=== PATIENT | female | born 1970 | race Caucasian/White ===

== ENCOUNTER 2017-02-11 06:02 | Day surgery (SDC) | payer OTHER ==
[~2017-02-11 06:02] MED LIST: Buffered Lidocaine 0.9% SYRIN* 5 ML/SYR SYRINGE INTRADERM ONE; Dexamethasone IV* 4 MG/ML 1 ML (4 MG) IV SLOW PU ONE; Famotidine IV* 10 MG/ML 2 ML (20 mg) IV ONE
[2017-02-11] MEDS ORDERED: Famotidine IV* 10 MG/ML 2 ML (20 mg) ONE (06:04)
[2017-02-11] MEDS ORDERED: Dexamethasone IV* 4 MG/ML 1 ML (4 MG) ONE (06:04)
[2017-02-11] MEDS ORDERED: ceFOXitin 2 GM IVPREMIX* 2 GM/50 ML BAG ONE (06:05)
[2017-02-11] MEDS ORDERED: Buffered Lidocaine 0.9% SYRIN* 5 ML/SYR SYRINGE ONE (06:05)
[2017-02-11] MEDS ORDERED: oxyCODONE/Acetamin 5/325 MG* TAB PO PRN (07:26)
[2017-02-11] MEDS ORDERED: fentaNYL* 50 MCG/ML 2 ML VIAL (100 MCG VIAL) IV PRN (07:26)
[2017-02-11] MEDS ORDERED: Ondansetron INJ* 2 MG/ML VIAL IV PRN (07:26)
[2017-02-11] MEDS ORDERED: DiMENhydriNATE IV* 50 MG/ML VIAL IV PUSH PRN (07:26)
[2017-02-11] MEDS ORDERED: Midazolam* 1 MG/ML 5 ML VIAL (5 MG) ONE (07:29)
[2017-02-11] MEDS ORDERED: Ondansetron INJ* 2 MG/ML VIAL ONE (07:30)
[2017-02-11] MEDS ORDERED: Propofol* 10 MG/ML 20 ML BTL IV PUSH ONE (07:30)
[2017-02-11] MEDS ORDERED: Ketorolac INJ* 30 MG/ML 1 ML VIAL ONE (07:30)
[2017-02-11] MEDS ORDERED: Chloroprocaine 2%* 20 ML VIAL ONE (07:30)
[2017-02-11] MEDS ORDERED: Lidocaine 2% PF * 5 ML VIAL ONE (07:41)
[2017-02-11 10:16] VITALS: BP 114/67
--- NOTE | 2017-02-11 16:26 | OP ---
DATE OF OPERATION: 02/11/17 - [facility] DATE OF : 66 SURGEON: Dr. Birmingham. ARCHITECT INTERNSHIP: None. ANESTHESIOLOGIST: Terrell Cuevas MD ANESTHESIA: Spinal. PRE-OP DIAGNOSES: Menorrhagia, excessive frequent menstruation with regular cycle. POST-OP DIAGNOSES: Menorrhagia, excessive frequent menstruation with regular cycle. OPERATIVE PROCEDURE: D and C, hysteroscopy, and endometrial ablation. ESTIMATED BLOOD LOSS: Minimal. SPECIMEN: Includes endometrium. FINDINGS: On exam under anesthesia, the uterus was mid position and there was a normal cavity. DESCRIPTION OF PROCEDURE: Patient identified, procedure identified as D and C, hysteroscopy, and endometrial ablation. The patient was taken to the operating room, prepped and draped in the usual fashion in dorsal lithotomy position under spinal anesthesia. Two single-tooth tenaculums were placed on the anterior lip of the cervix. The hysteroscope was inserted and the above findings were noted. The uterus was sounded to 8 cm. The endocervix was sounded to 3 cm, making the cavity length 5 cm. After the hysteroscopy, the sharp curette was inserted and sharp curettage performed until gritty sensation was felt throughout the circumference and the NovaSure device was opened. The array was checked. The device was placed in the uterine cavity. Opening width was 4.8 cm, power setting of 132. The CO2 perforation test was performed. The device passed. The device was enabled. NovaSure ablation took place for 90 seconds. At the end of the procedure, the NovaSure was removed and the hysteroscope was reinserted and a good ablation was noted. No perforations were noted. All instruments were removed from the vagina. All sponge and instrument counts were correct and the patient returned to the recovery room in stable condition. [id number]/CPS #: [id number] [facility]
== END 2017-02-11 10:17 | disposition home or self-care (01) ==
LOC: OR 06:02
PROVIDERS: ATTEND Obstetrics & Gynecology
DX: N92.0 Excessive and frequent menstruation with regular cycle (principal); J45.909 Unspecified asthma, uncomplicated; E03.9 Hypothyroidism, unspecified; M06.9 Rheumatoid arthritis, unspecified
CPT/HCPCS: 81025; 88305; J0694; J1100; J1885; J2250; J2400; J2405; J2704

== ENCOUNTER 2019-05-26 06:43 | Observation (INO) | payer OTHER ==
--- NOTE | 2019-05-15 14:08 | HP ---
CC: Dr. Martín Erwin; Dr. Joshi; Dr. Lora * PREOPERATIVE HISTORY AND PHYSICAL: DATE OF ADMISSION/SURGERY: 05/26/19 This patient is scheduled for same-day surgery with overnight extension on 05/26/19. DATE OF PREOPERATIVE HISTORY AND PHYSICAL EXAMINATION: 05/15/19. ATTENDING SURGEON: Dr. Lucinda Joiner * (dictated by Dee Oliveira NP). CHIEF COMPLAINT: Right breast cancer. HISTORY OF PRESENT ILLNESS: The patient is a 48-year-old female, recently evaluated by Dr. Joiner for a newly diagnosed right breast ductal carcinoma in situ. The patient had not noticed any breast changes, but underwent routine screening mammography in mid February. This showed suspicious right breast calcifications and she underwent a biopsy of 2 areas in a 4 to 5 cm region of microcalcification. One of the areas showed ductal carcinoma in situ and the other showed atypical ductal hyperplasia. She denied any breast changes and has no nipple discharge. She had a bilateral breast MRI that revealed a suspicious area in the right breast that was extensive and the left breast showed scattered punctate areas with questionable suspicious appearance. Dr. Joiner has reviewed the findings with the patient and discussed surgical options and the patient has opted for bilateral mastectomies with right sentinel lymph node biopsy by Dr. Joiner and then immediate reconstruction by Dr. Lora. Dr. Joiner described the nature of the portion of the surgical procedure that she would be doing, the relevant risks and benefits and alternatives. She has had a consultation with Dr. Lora to discuss the immediate reconstruction. Additional history includes a left breast biopsy in her 20s that was benign; a family history of breast cancer in a paternal aunt and a maternal great aunt and a maternal second cousin; there is no family history of ovarian cancer. The patient was on control pills for a few years 25 years ago; she was 12 with her first menstrual period and 24 with her first child and she did breastfeed. She underwent uterine ablation in 2016 and has not had a menstrual cycle since. PAST MEDICAL HISTORY: Significant for asthma, rheumatoid arthritis, hypothyroidism and migraine headaches. PAST SURGICAL HISTORY: Two right knee surgeries in 1986, bilateral trigger thumb release, right wrist surgery, diagnostic laparoscopy, uterine ablation. OB HISTORY: 3, para 3. She has not had a menstrual period since January 2017 after uterine ablation. MEDICATIONS: 1. Meloxicam 15 mg p.o. daily and she will hold that for 5 days preoperatively. 2. Hydroxychloroquine sulfate 200 mg 2 tablets daily. 3. Ferrous sulfate 325 mg p.o. daily. 4. Spiriva HandiHaler 18 mcg 1 unit inhalation daily. 5. Multivitamin p.o. daily. 6. Albuterol sulfate via nebulizer as needed. 7. Proventil inhaler 108 mcg per actuation 2 puffs every 6 hours p.r.n. 8. Vitamin C 1000 mg daily. 9. Levothyroxine 125 mcg daily. 10. She was previously on intravenous infusion of Rituxan, but that is on hold until after surgery. 11. Voltaren 1% apply 2 g to affected area up to 4 times daily. ALLERGIES: METHOTREXATE caused severe migraine headaches, CLARITHROMYCIN caused rash and BAND-AIDS caused skin tears. FAMILY HISTORY: Positive for breast cancer in a paternal aunt diagnosed around age 50, a maternal great aunt at an unnamed age and a maternal cousin diagnosed at age 35. There is no family history of ovarian cancer. No known anesthesia complications, bleeding tendencies, or clotting disorders. 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 REVIEW OF SYSTEMS: Constitutional: No fevers, chills, excessive fatigue or weight loss. General: No previous anesthesia complications. No history of deep vein thrombosis or pulmonary embolism. No bleeding tendencies or blood transfusions, but she states that she bruises easily. Endocrine: No diabetes. She has hypothyroidism and is on replacement. Breasts: As described in history of present illness. Respiratory: No dyspnea on exertion or chronic cough. Cardiovascular: No anginal chest pain or palpitations. Gastrointestinal : No nausea, vomiting, diarrhea, GI bleeding, constipation, or change in bowel habits. Genitourinary: No dysuria. Musculoskeletal: Rheumatoid arthritis with chronic associated pain. Integumentary: No chronic rashes or skin changes. Neurologic: No headache, blurred vision, or areas of focal numbness. Psychiatric: No reported anxiety, depression, or insomnia. PHYSICAL EXAMINATION GENERAL SURVEY: The patient is a 48-year-old female, well developed, well nourished, in no acute distress. VITAL SIGNS: Height 64 inches, weight 135 pounds, body mass index 23.2. Blood pressure 100/70, pulse 72 and regular, respiratory rate 16, temperature 97.7 tympanic. HEENT: Benign. NECK: Supple. No cervical lymphadenopathy. No supraclavicular lymphadenopathy. LUNGS: Breath sounds bilaterally clear and equal. BREASTS: Symmetrical. Palpation of the right breast reveals nodularity laterally, but no discrete masses. Palpation of the left breast reveals no discrete masses, no axillary adenopathy bilaterally, no nipple discharge. HEART: Regular rate and rhythm. No murmurs or rubs appreciated. ABDOMEN: Active bowel sounds, soft, nondistended, nontender throughout. PELVIC EXAM: Deferred. RECTAL EXAM: Deferred. EXTREMITIES: Warm without edema or skin ulceration. NEUROLOGIC: Alert and oriented x3. Steady gait. PSYCHIATRIC: Cooperative and calm. SKIN: Warm, dry, intact. IMPRESSION: Right breast ductal carcinoma in situ, extensive as noted on breast MRI. PLAN: Same-day surgery admission with overnight stay to Dr. Joiner's service for bilateral mastectomies with right sentinel lymph node biopsy by Dr. Joiner and then immediate reconstruction with Dr. Lora. TOM OLIVEIRA, RAMAKRISHNA [id number]/CPS #: [id number] [facility]
[2019-05-26] MEDS ORDERED: Heparin VIAL(*) 5000 UNITS/ML VIAL (FIVE THOUSAND) SUBCUT ONE (07:00)
[2019-05-26] MEDS ORDERED: Buffered Lidocaine 1% SYRIN* 1 ML/SYRINGE INTRADERM ONE (07:38)
[2019-05-26] MEDS ORDERED: Lidocaine 2.5%/Prilocain 2.5%* 5 GM TUBE ONE (07:38)
[2019-05-26] MEDS ORDERED: Acetaminophen TAB* 325 MG ONE (07:54)
[2019-05-26] MEDS ORDERED: Scopolamine 1.5 mg* PATCH ONE (09:30)
[2019-05-26] MEDS ORDERED: Heparin VIAL(*) 5000 UNITS/ML VIAL (FIVE THOUSAND) ONE (09:30)
[2019-05-26] MEDS ORDERED: Dexamethasone IV* 4 MG/ML 1 ML (4 MG) ONE (09:30)
[2019-05-26] MEDS ORDERED: Ondansetron INJ* 2 MG/ML VIAL ONE ×3 (09:30→18:14)
[2019-05-26] MEDS ORDERED: ceFAZolin 2 GM PREMIX in ORs 2 GM/50 ML BAG ONE ×2 (09:30→16:25)
[2019-05-26] MEDS ORDERED: Midazolam* 1 MG/ML 2 ML VIAL (2 MG) ONE (10:31)
[2019-05-26] MEDS ORDERED: Rocuronium* 10 MG/ML VIAL ONE (10:31)
[2019-05-26] MEDS ORDERED: Lidocaine 2% PF * 5 ML VIAL ONE (10:31)
[2019-05-26] MEDS ORDERED: Propofol* 10 MG/ML 20 ML BTL ONE ×3 (10:31→14:23)
[2019-05-26] MEDS ORDERED: fentaNYL* 50 MCG/ML 2 ML VIAL (100 MCG VIAL) ONE (10:32)
[2019-05-26] MEDS ORDERED: Gentamicin ADULT (*) 40 MG/ML VIAL (2 ML VIAL = 80 MG) ONE (11:56)
[2019-05-26] MEDS ORDERED: Methylene Blue 0.5 %* 50 MG/10 ML AMP IV ONE (11:57)
[2019-05-26] MEDS ORDERED: ceFAZolin VIAL(*) VIAL ONE (11:57)
[2019-05-26] MEDS ORDERED: Bacitracin INJECTION* 50,000 UNITS ONE (11:57)
[2019-05-26] MEDS ORDERED: Bupivacaine 0.25% SDV* 30 ML ONE (11:57)
[2019-05-26] MEDS ORDERED: Povidone Iodine 5% OPTH* 30 ML BTL ONE (12:12)
[2019-05-26] MEDS ORDERED: Propofol* 500 MG/50 ML BTL ONE (12:25)
[2019-05-26] MEDS ORDERED: KETAMINE HCL* 50 MG/ML 10 ML VIAL ONE (12:26)
[2019-05-26] MEDS ORDERED: Remifentanil* 2 MG VIAL ONE ×2 (12:28→15:54)
[2019-05-26] MEDS ORDERED: DiMENhydriNATE IV* 50 MG/ML VIAL IV PUSH PRN (13:06)
[2019-05-26] MEDS ORDERED: oxyCODONE TAB* 5 MG TAB PO PRN (13:06)
[2019-05-26] MEDS ORDERED: Naloxone* 0.4 MG/ML 1 ML VIAL IV PRN (13:06)
[2019-05-26] MEDS ORDERED: Phenylephrine 40 MCG/ML SYRINGE ONE (13:15)
[2019-05-26] MEDS ORDERED: Propofol* 100 ML ONE (14:45)
--- NOTE | 2019-05-26 15:17 | BRIEFOPN ---
Brief Operative/Procedure Note - Operation Details Pre-Op Diagnosis: right breast cancer (DCIS) Post-Op Diagnosis: same Procedures: Bilateral mastectomy; right sentinel lymph node biopsy; immediate reconstruction by Dr. Lora Surgeon(s)/Proceduralists: Rhys. Assist: RAMAKRISHNA Kaur; ANGUS Zapata; ANGUS Carvajal Anesthesia: GET Estimated Blood Loss: 50 -100 ml; IVF: Findings: as above Specimen(s)/Culture(s) Description: bilateral breasts; Right sentinel lymph nodes Complications: none
[2019-05-26] MEDS ORDERED: Acetaminophen TAB* 325 MG PO PRN (15:33)
[2019-05-26] MEDS ORDERED: HYDROmorphone INJ1* 1 MG/ML SYRINGE IV SLOW PU PRN ×2 (15:34)
[2019-05-26] MEDS ORDERED: Albuterol HFA INHALER* 8 gm MDI INH PRN (15:38)
[2019-05-26] MEDS ORDERED: Albuterol 2.5 MG/3 ML NEB.SOL* (0.083%) INH PRN (15:38)
[2019-05-26] MEDS ORDERED: Ondansetron INJ* 2 MG/ML VIAL IV PRN (15:38)
[2019-05-26] MEDS ORDERED: Acetaminophen IV 1GM/100ML * 100 ML ONE (16:30)
[2019-05-26] MEDS ORDERED: Metoclopramide IV* 5 MG/ML 2 ML VIAL ONE (16:31)
[2019-05-26] MEDS ORDERED: Ketorolac INJ* 30 MG/ML 1 ML VIAL ONE (16:31)
[2019-05-26] MEDS ORDERED: HYDROmorphone INJ1* 1 MG/ML SYRINGE ONE ×2 (16:52→18:14)
[2019-05-26] MEDS ORDERED: oxyCODONE TAB* 5 MG TAB ONE (17:47)
[2019-05-26] MEDS ORDERED: DiMENhydriNATE IV* 50 MG/ML VIAL ONE (18:14)
[2019-05-26] MEDS: HYDROmorphone INJ1* 1 MG/ML SYRINGE IV PRN ×5 (18:15→18:44)
[2019-05-26] MEDS: Lactated Ringers 1000 ML Bag* 1,000 ML IV SCH (20:32)
--- NOTE | 2019-05-26 20:50 | OP ---
CC: [facility]; Dr. Martín Erwin * DATE OF OPERATION: 05/26/19 - ROOM #[id number] DATE OF : 66 SURGEON: For the mastectomy portion of the case was Dr. Lucinda Joiner. ASSISTANTS: ANGUS Reyes, and ANGUS Carvajal student. PRE-OP DIAGNOSIS: Right breast ductal carcinoma in situ. POST-OP DIAGNOSIS: Right breast ductal carcinoma in situ. OPERATIVE PROCEDURE: Bilateral mastectomy with immediate reconstruction done by Dr. Lora and right sentinel lymph node biopsy. INDICATIONS: Ms. Fowler is a 48-year-old woman recently diagnosed with what appeared to be extensive DCIS in the right breast. After extensive discussion, she elected to have bilateral mastectomy and immediate reconstruction. DESCRIPTION OF PROCEDURE: On the morning of surgery, she underwent sentinel lymph node localization without difficulty and was then brought to the operating room. She was placed on the OR table in a supine position and given general anesthesia. The bilateral chest wall and right axilla were prepped and draped in the usual sterile fashion. The first step was to attend to the left side. Here, an incision was made in the superior breast following the lines that had been marked by Dr. Lora. The subcutaneous tissue was then divided with electrocautery medially to the sternum, superiorly to the clavicle , and laterally to the latissimus dorsi muscle. An inferior incision was then made and subcutaneous tissue was divided in a similar fashion medially to the sternum, inferiorly to the rectus muscle and laterally to the latissimus dorsi muscle. Once these planes were well defined, the breast was elevated off the chest wall again using electrocautery. Once the last attachments of the breast to the chest wall were divided, the breast was marked in usual fashion and handed off as a specimen. The wound was inspected for hemostasis, which appeared to be adequate and then a moist lap was placed in the cavity until Dr. Lora could start with the reconstruction on that side. Attention was then turned to the right side. Here, an incision was made in the superior breast and subcutaneous tissue was divided with electrocautery medially to the sternum, superiorly to the clavicle and laterally to the latissimus dorsi muscle. An incision was then made inferiorly and again electrocautery was used to complete the dissection medially to the sternum, inferiorly to the rectus muscle, and laterally to the latissimus dorsi muscle. The breast was elevated off the chest wall using electrocautery, and as the axillary tail was reached, a search was made for the sentinel nodes. The navigator was used to identify 1 sentinel node that appeared to be in the axillary tail. This was left with the breast specimen and marked with a separate silk stitch marking its location and then the remaining attachments of the breast to the chest wall were divided with electrocautery and the breast specimen was otherwise marked in usual fashion using Prolene to akilah the edges of the breast. This was then handed off as a specimen. A search for the second sentinel node revealed another node in the axilla. Its in situ counts were 875 and ex vivo counts were 799. Then, a third sentinel node was identified with in situ counts of 222 and ex-vivo counts of 243. It should be mentioned that the intramammary sentinel node #1 had in situ counts of 7000 and ex-vivo counts of around 4000. The axillary bed counts were 3. The wound was again inspected for hemostasis and a moist lap was placed in the cavity and the case was then handed over to Dr. Lora. The patient was in a stable condition. [id number]/[facility] #: [id number] [facility]
[2019-05-26] MEDS: ceFAZolin 2 GM PREMIX in ORs 2 GM/50 ML BAG IVPB SCH (21:33)
[2019-05-27] MEDS: oxyCODONE/Acetamin 5/325 MG* TAB PO PRN ×4 (01:34→13:44)
[2019-05-27] MEDS: ceFAZolin 2 GM PREMIX in ORs 2 GM/50 ML BAG IVPB SCH ×2 (05:25→12:17)
[2019-05-27] MEDS ORDERED: Levothyroxine TAB* 125 MCG TAB PO SCH (06:00)
[2019-05-27] MEDS ORDERED: SPIRIVA Respimat* (tiotropium) 2.5 mcg/inh Inhaler INH SCH (09:00)
--- NOTE | 2019-05-27 09:05 | PN ---
Progress Note - Progress Note Date of Service: 05/27/19 SOAP: Subjective: [] Objective: [] Assessment: [] Plan: []
[2019-05-27] MEDS ORDERED: Diclofenac 1% GEL (NF) 100 GM TUBE TOPICAL PRN (09:21)
--- NOTE | 2019-05-27 09:21 | PN ---
Progress Note - Progress Note Date of Service: 05/27/19 SOAP: Discharge Note Subjective: Doing well. Pain as expected. Voiding well. Objective: Alert, NAD Afebrile, VSS. Systolic pressure 80 - 90's but not tachycardic or lightheaded VAC Prevena Bellaform in place No unusual swelling or erythema Assessment: Doing well POD#1 Plan: Ambulate and see how she does this morning. If she remains stable then OK for discharge from my perspective with DONNA's and VAC in place; will discuss with general surgery. Follow up in my office scheduled for next week. Instructions given.
[2019-05-27] MEDS: Lactated Ringers 1000 ML Bag* 1,000 ML IV SCH (09:37)
[2019-05-27 11:31] VITALS: BP 97/48
[2019-05-27] MEDS ORDERED: Ferrous Sulfate TAB* 325 MG PO SCH (17:30)
[2019-05-27] MEDS ORDERED: CMCS - Meloxicam(NF) 7.5 MG TAB PO SCH (21:00)
[2019-05-27] MEDS ORDERED: Hydroxychloroquine TAB* 200 MG PO SCH (21:00)
[2019-05-28] MEDS ORDERED: Ascorbic Acid TAB* 500 MG PO SCH (09:00)
--- NOTE | 2019-06-03 11:13 | DS ---
DISCHARGE SUMMARY: DATE OF ADMISSION: 05/26/19 DATE OF DISCHARGE: 05/27/19 PRINCIPAL DIAGNOSIS: Right breast ductal carcinoma in situ. PROCEDURES: Bilateral mastectomy and immediate bilateral breast reconstruction with tissue tissue expanders and acellular dermal matrix slings. SURGEONS: Lucinda Joiner MD and Maynor Lora MD SUMMARY: The patient is a 48-year-old white female diagnosed with right breast ductal carcinoma in situ. She was taken to the operating room on 05/26/19 and underwent bilateral mastectomy and right sentinel node biopsy with Dr. Joiner. I performed bilateral immediate breast reconstruction with tissue expanders and acellular dermal matrix slings. She tolerated the procedure well. She had uncomplicated convalescent course in the hospital. On postoperative day 1, she was doing well. Pain was controlled. She was afebrile and vital signs were stable. She had a VAC Prevena Radha Form dressing in place and was discharged home with the VAC and Nathan-Mccarthy drains in place. She was given instructions including activity level wound care medication and followup. She was scheduled for followup in my office the following week. [id number]/CPS #: [id number] [facility]
== END 2019-05-27 14:35 | disposition home or self-care (01) | DRG 581 ==
LOC: SDS 06:43 → INTOOBSV 15:17 → SSU 15:17
PROVIDERS: ADMIT Surgery; ATTEND Plastic Surgery
DX: D05.81 Other specified type of carcinoma in situ of right breast (principal); J45.909 Unspecified asthma, uncomplicated; M06.9 Rheumatoid arthritis, unspecified; G43.909 Migraine, unspecified, not intractable, without status migrainosus; E03.9 Hypothyroidism, unspecified; Z88.8 Allergy status to other drugs, medicaments and biological substances; Z88.1 Allergy status to other antibiotic agents; Z91.048 Other nonmedicinal substance allergy status
CPT/HCPCS: 36415; 71045; 78195; 86850; 86900; 86901; 88307; 88342; A9270-GY; A9541; C1789; G0378; J0690; J1100; J1170; J1240; J1580; J1644; J1885; J2250; J2405; J2704; J2765; J3010; J3490; J3535; Q4128